=== PATIENT | female | born 2000 | race Hispanic/Latino ===

== ENCOUNTER 2021-03-16 12:10 | Outpatient (CLI) | payer OTHER | END 2021-03-16 12:11 | disposition home or self-care (01) | LOC: CSHCT 12:10 | PROVIDERS: ATTEND Surgery | DX: K80.20 Calculus of gallbladder without cholecystitis without obstruction (principal); R10.9 Unspecified abdominal pain; Z90.49 Acquired absence of other specified parts of digestive tract; N83.01 Follicular cyst of right ovary | CPT/HCPCS: 74177 ==